=== PATIENT | male | born 1950 | race Caucasian/White ===

== ENCOUNTER 2017-07-24 18:56 | Emergency (ER) | payer OTHER ==
[~2017-07-24] VITALS: Ht 175.3 cm; Wt 109.0 kg
[2017-07-24 19:01] VITALS: TEMP 36.7; Ht 175.3 cm; Wt 109.0 kg
[2017-07-24] MEDS ORDERED: ACETAMINOPHEN 500 MG TAB PO STA (19:18)
--- NOTE | 2017-07-24 19:54 | EMERGENCY ROOM VISIT NOTE ---
ED Visit Note First contact with patient: 19:05 CHIEF COMPLAINT: Fall, head injury HISTORY OF PRESENTING ILLNESS: This is a 66-year-old male who presents to the emergency department with complaint of head injury from a fall at approximately 4:45 PM today. Patient states that he was walking down a ramp and lost his footing, tripping over a curb. He states that he fell forward onto both hands and his left knee then to his left side hitting the left lateral side of his head. He denies loss of consciousness. He takes a baby aspirin daily, he denies any other blood thinners. He states since hitting his head that he has had a constant dull headache rated 3/10. He has associated symptoms of nausea, dizziness, and states "I feel fuzzy and just kind of off." He denies any vomiting, blurry or double vision, confusion or memory problems. He denies any neck pain. He denies any back pain, chest pain, shortness of breath, syncope, abdominal pain, blood in his stool or urine, numbness or weakness of the extremities. He has small abrasions to both hands and to the anterior left knee. He denies any pain with range of motion of the left knee or walking on the left leg, denies any pain with range of motion of the bilateral wrists, elbows, or shoulders. Denies any ankle or hip pain. REVIEW OF SYSTEMS: A complete 10 point review of systems was reviewed with the patient with pertinent positives and negatives as per history of present illness. All else were negative. PAST MEDICAL HISTORY: Hypertension SOCIAL HISTORY: Lives at home. He denies tobacco use, alcohol or recreational drug use. ALLERGIES: Reviewed in chart. PHYSICAL EXAM: CONSTITUTIONAL: Pleasant and cooperative. No acute distress. Well appearing and well nourished. Interacts appropriately with provider. HEAD: Normocephalic, Atraumatic. No Auguste's Sign or Raccoon's Eyes. No depressed skull fractures palpable. EYES: PERRL with EOMI bilaterally. Without subconjunctival hemorrhage. Palpebral conjunctiva pink and moist with no injection. EARS: No deformities of external structures noted on gross examination bilaterally. No hemotympanum present. No tympanic perforation noted. NOSE: Midline and without cyanosis. No epistaxis or clear watery discharge noted. Septum midline without deviation. No septal hematoma noted. No overlying ecchymosis noted. MOUTH/OROPHARYNX: Without perioral cyanosis. Tongue midline with equal elevation of palate bilaterally. No blood noted in the oropharynx. No tonsillar hypertrophy, erythema, or exudates noted. No dental fractures noted. NECK: Supple, FROM assessed. No nuchal rigidity. No tenderness to palpation over the cervical spinous processes. Mild left-sided cervical paraspinal muscle tenderness noted. RESPIRATORY: Clear to auscultation bilaterally with no wheezing, crackles, rhonchi or stridor. Equal expansion bilaterally. CARDIOVASCULAR: Regular rate and rhythm with no murmurs, rubs or gallops. Normal peripheral perfusion. No edema. GASTROINTESTINAL: Soft, nontender, nondistended. No palpable masses or HSM. Bowel sounds present in all quadrants. MUSCULOSKELETAL: Full range of motion of all joints without discomfort. No gross deformities noted of the extremities. +2 radial and dorsalis pedis pulses palpated throughout. FROM with no tremors, fasciculations, or clonus noted on PROM throughout. +5/5 strength noted in UE/LE bilaterally. BACK: No midline tenderness or paraspinous tenderness to palpation of the thoracic or lumbar spine. No ecchymosis or abrasions noted. INTEGUMENTARY: Abrasions to bilateral palms of hands, abrasion to left anterior knee. No rash or other significant dermatologic conditions noted. NEUROLOGIC: Alert and oriented X 4 with normal affect. Cranial nerves II-XII grossly intact. No focal neurologic deficits noted. Sensory intact to light touch throughout. Patient able to perform rapid alternating movements appropriately. Negative Romberg and Pronator Drift. ED COURSE AND MEDICAL DECISION MAKING: CC: Patient presenting with complaint of fall, head injury DIFFERENTIAL DIAGNOSIS: Includes, but not limited to concussion, skull fracture , intracranial hemorrhage, hypertensive urgency/emergency, aortic dissection, among others. INTERPRETATION OF LABS: No leukocytosis, no anemia, no significant electrolyte abnormalities, normal renal function. IMAGING: CT SCAN OF THE BRAIN WITHOUT IV CONTRAST CLINICAL HISTORY: Fall. Head injury. COMPARISON STUDY: No priors. TECHNIQUE: Unenhanced axial CT scan of the brain is performed from the vertex to the skull base. A dose lowering technique was utilized adhering to the principles of ALARA. FINDINGS: Brain parenchyma: There are age-related involutional changes noting minimal periventricular microangiopathic change. There is no hemorrhage, mass effect, or evidence of acute territorial ischemia by CT criteria. Isaac-white matter is preserved. No extra-axial fluid collection is seen. Ventricles, sulci, cisterns: Prominent secondary to involutional change. Intracranial vasculature: There is atherosclerotic calcification of the cavernous carotid arteries. Calvarium: The skeletal structures are osteopenic. There is no depressed calvarial fracture. Sinuses and mastoids: The visualized paranasal sinuses are clear. The mastoid air cells are well pneumatized. Orbits: The bony orbits are grossly intact. IMPRESSION: No acute intracranial abnormality. ----- CT SCAN OF THE CERVICAL SPINE CLINICAL HISTORY: Fall. COMPARISON STUDY: No priors. TECHNIQUE: CT scan of the cervical spine is performed from the skull base to the upper thoracic spine. Images are reviewed in the axial, sagittal, and coronal planes. IV contrast was not administered for this examination. A dose lowering technique was utilized adhering to the principles of ALARA. CT DOSE: 1205.16 mGy.cm FINDINGS: Skeletal structures: The skeletal structures are osteopenia. There is no evidence of fracture or subluxation involving the cervical spine. Vertebral body height is maintained. Minimal anterolisthesis is seen at C4-C5. Alignment is otherwise preserved. There is straightening of the cervical lordosis with mild reversal centered at C4-C5. Anterior osteophytes are seen in the lower cervical region. The odontoid process and lateral masses are intact. The atlantoaxial articulation is preserved noting advanced productive degenerative change. The spinous processes appear intact. There is moderate multilevel cervical spondylosis. Uncovertebral and facet arthropathy contribute to neural foraminal stenosis at several levels. Intervertebral discs: There is moderate disc space narrowing seen at C5-C6 and C6-C7 with associated endplate sclerosis. Mild narrowing is seen at C4-C5. Central canal: Posterior discussed by complex is at C2-C3, C3-C4, C5-C6, and C6-C7 likely contribute to multilevel acquired compromise of the central canal. Soft tissues: The prevertebral and paraspinous soft tissues are within normal limits. A subcentimeter low-attenuation nodule is noted in the left thyroid lobe. Calvarium: The visualized calvarium at the skull base appears intact. Brain parenchyma: Partially visualized brain parenchyma the skull base is within normal limits. Sinuses and mastoids: The visualized paranasal sinuses are clear. The mastoid air cells are well pneumatized. Lung apices: Apical lung parenchyma is clear as visualized. Mediastinal widening is questioned on the final rail cutter tomogram. IMPRESSION: 1. There is no evidence of fracture or subluxation involving the cervical spine. 2. Osteopenia and multilevel spondylosis as above. 3. Mediastinal widening is questioned on the final rail cutter tomogram. This may be on a technical/projectional basis. Correlation with PA and lateral chest radiographs is recommended. ----- TWO VIEW CHEST CLINICAL HISTORY: Mediastinal widening questioned on cervical spine CT. FINDINGS: PA and lateral chest radiographs are correlated with CT of the cervical spine dated 07/24/2017. The heart is top normal for projection. Mild apparent widening of the mediastinum persists. There is atherosclerotic calcification of the thoracic aorta. The lungs and pleural spaces are clear. There is no pneumothorax. The bony thorax appears intact. IMPRESSION: 1. There is no acute cardiopulmonary abnormality. 2. Mild apparent widening of the mediastinum persists. This is of indeterminant significance, and although this may be artifactual correlation with a contrast-enhanced CT scan of the chest is recommended for further assessment. EKG: Normal sinus rhythm with a rate of 90 bpm, right bundle branch block by my interpretation. No previous EKGs available for comparison. Patient does report a history of a right bundle branch block MEDICATION RECONCILIATION: I attest that I have personally reviewed the patient 's current medication list. INITIAL VITAL SIGNS REVIEW: I reviewed the patient's initial vital signs and interpret them as follows: T: Afebrile; BP: Hypertensive; HR: Tachycardic; RR : Within normal limit; Pulse Ox: Within normal limits on room air. Blood pressure screening: The patient was found to have an elevated blood pressure and was referred to their primary doctor for recheck and further treatment. SUMMARY: Patient was evaluated at bedside, history and physical exam performed. Patient is alert and oriented, in no acute distress, resting calmly on the stretcher. Neurologic exam is intact with no focal deficits. He does complain of a headache and some left-sided neck pain. Patient has mild abrasions to the bilateral hands and left knee. Full range of motion of the knee, hands, and wrists without any pain or weakness. Patient is noted to be markedly hypertensive, states he takes clonidine twice a day, but states he only took half of his usual dose this morning. The patient states it is not unusual for him to have blood pressures in the 180s -200s/100s-120s. Orders were placed at bedside for EKG, Tylenol for headache, CT head and cervical spine to evaluate for trauma. Patient discussed with Dr. Owusu, who agrees with my assessment and plan. Imaging reviewed as above, concern for mediastinal widening on chest x-ray and cervical spine CT. The patient continues to deny any chest pain, shortness of breath, back pain, and his neurovascular exam remains intact on reassessment. Given this finding and the patient's history for significant hypertension, I feel it is the patient's best interest to fully evaluate for the possibility of dissection. I discussed this with the patient, he verbalized understanding and was in agreement. Labs were ordered. CTA dissection study of the chest was ordered. The patient has been persistently hypertensive, though he does note he is due for his clonidine. The patient took his own home dose of PO clonidine, 0.1 mg, at 11 PM, with my direct supervision. Will continue to closely monitor his blood pressure. Patient reassessed multiple times throughout ED stay, he has remained well- appearing and stable, his tachycardia is downtrending. Patient was signed out to Karthikeyan Panchal PA-C, at change of shift, awaiting results of the CTA. Patient was stable at time of sign-out. Current/Historical Medications Scheduled Aspirin (Aspirin Ec), 81 MG PO DAILY Clonidine Hcl (Catapres), 0.1 MG PO BID Diazepam (Valium), 0.5 TAB PO PRN UD Eszopiclone (Lunesta), 3 MG PO HS Rabeprazole Sodium (Aciphex), 40 MG PO DAILY Scheduled PRN Acetaminophen (Tylenol), 750-1,000 MG PO BID PRN for Pain Allergies Coded Allergies: Sulfa Antibiotics (Verified Allergy, Severe, FATIGUE, 07/24/17) Uncoded Allergies: ADULT STRENGTH ASPIRIN (Allergy, Intermediate, HEAD, HAND HIVES, 07/24/17) Vital Signs Date Time Temp Pulse Resp B/P (MAP) Pulse Ox O2 Delivery O2 Flow Rate FiO2 07/24/17 23:12 80 18 200/125 97 Room Air 07/24/17 22:57 81 96 Room Air 07/24/17 22:44 206/112 07/24/17 22:42 209/112 07/24/17 21:27 83 95 07/24/17 21:22 83 22 180/108 95 07/24/17 19:26 97 20 95 Room Air 07/24/17 19:21 186/109 07/24/17 19:01 36.7 103 20 207/119 95 Room Air Laboratory Results 07/24/17 22:50 Red Blood Count 5.79, Mean Corpuscular Volume 78.1, Mean Corpuscular Hemoglobin 26.4, Mean Corpuscular Hemoglobin Concent 33.8, Mean Platelet Volume 10.1, Neutrophils (%) (Auto) 61.9, Lymphocytes (%) (Auto) 26.0, Monocytes (%) (Auto) 10.6, Eosinophils (%) (Auto) 1.0, Basophils (%) (Auto) 0.3, Neutrophils # (Auto ) 5.89, Lymphocytes # (Auto) 2.48, Monocytes # (Auto) 1.01, Eosinophils # (Auto ) 0.10, Basophils # (Auto) 0.03 Test 07/24/17 22:50 07/24/17 22:58 White Blood Count 9.53 K/uL (4.8-10.8) Red Blood Count 5.79 M/uL (4.7-6.1) Hemoglobin 15.3 g/dL (14.0-18.0) Hematocrit 45.2 % (42-52) Mean Corpuscular Volume 78.1 fL (80-100) Mean Corpuscular Hemoglobin 26.4 pg (25-34) Mean Corpuscular Hemoglobin Concent 33.8 g/dl (32-36) Platelet Count 248 K/uL (130-400) Mean Platelet Volume 10.1 fL (7.4-10.4) Neutrophils (%) (Auto) 61.9 % Lymphocytes (%) (Auto) 26.0 % Monocytes (%) (Auto) 10.6 % Eosinophils (%) (Auto) 1.0 % Basophils (%) (Auto) 0.3 % Neutrophils # (Auto) 5.89 K/uL (1.4-6.5) Lymphocytes # (Auto) 2.48 K/uL (1.2-3.4) Monocytes # (Auto) 1.01 K/uL (0.11-0.59) Eosinophils # (Auto) 0.10 K/uL (0-0.5) Basophils # (Auto) 0.03 K/uL (0-0.2) RDW Standard Deviation 47.6 fL (36.4-46.3) RDW Coefficient of Variation 17.0 % (11.5-14.5) Immature Granulocyte % (Auto) 0.2 % Immature Granulocyte # (Auto) 0.02 K/uL (0.00-0.02) Bedside Hemoglobin 15.6 g/dl (14.0-18.0) Bedside Hematocrit 46 % (42-52) Bedside Sodium 139 mEq/L (135-144) Bedside Potassium 3.6 mEq/L (3.3-5.0) Bedside Chloride 102 mEq/L (101-112) Bedside Total CO2 24 mEq/l (24-31) Anion Gap 17.0 mmol/L (16-25) Bedside Blood Urea Nitrogen 16 mg/dl (7-18) Bedside Creatinine 1.0 mg/dl (0.6-1.3) Bedside Glucose (other) 98 mg/dl (70-99) Bedside Ionized Calcium (Nirali) 1.20 mmol/l (1.12-1.32) Medications Administered Medications (Trade) Dose Ordered Sig/Kareen Route Start Time Stop Time Status Last Admin Dose Admin Acetaminophen (Tylenol Tab) 1,000 mg NOW STAT PO 07/24/17 19:18 07/24/17 19:20 DC 07/24/17 19:28 1,000 MG Departure Information Impression Primary Impression: Fall Referrals No Doctor, Assigned (PCP) Patient Instructions [facility] Problem Qualifiers Primary Impression: Fall Encounter type: initial encounter Qualified Codes: W19.XXXA - Unspecified fall, initial encounter
[2017-07-24] MEDS ORDERED: ESZO1TAB16 PO (19:57)
[2017-07-24] MEDS ORDERED: ACET-1256 PO (19:57)
[2017-07-24] MEDS ORDERED: DIAZ-165 PO (19:57)
[2017-07-24] MEDS ORDERED: RABE20TA5 PO (19:57)
[2017-07-24] MEDS ORDERED: ASPI81TA28 PO (19:57)
[2017-07-24] MEDS ORDERED: CTP/1 PO (19:57)
--- NOTE | 2017-07-24 20:08 | DIAGNOSTIC IMAGING REPORT ---
CT SCAN OF THE BRAIN WITHOUT IV CONTRAST CLINICAL HISTORY: Fall. Head injury. COMPARISON STUDY: No priors. TECHNIQUE: Unenhanced axial CT scan of the brain is performed from the vertex to the skull base. A dose lowering technique was utilized adhering to the principles of ALARA. FINDINGS: Brain parenchyma: There are age-related involutional changes noting minimal periventricular microangiopathic change. There is no hemorrhage, mass effect, or evidence of acute territorial ischemia by CT criteria. Isaac-white matter is preserved. No extra-axial fluid collection is seen. Ventricles, sulci, cisterns: Prominent secondary to involutional change. Intracranial vasculature: There is atherosclerotic calcification of the cavernous carotid arteries. Calvarium: The skeletal structures are osteopenic. There is no depressed calvarial fracture. Sinuses and mastoids: The visualized paranasal sinuses are clear. The mastoid air cells are well pneumatized. Orbits: The bony orbits are grossly intact. IMPRESSION: No acute intracranial abnormality. Electronically signed by: Aleksandr Velasquez M.D. 07/24/2017 8:07 PM Dictated Date/Time: 07/24/2017 8:05 PM
--- NOTE | 2017-07-24 20:12 | DIAGNOSTIC IMAGING REPORT ---
CT SCAN OF THE CERVICAL SPINE CLINICAL HISTORY: Fall. COMPARISON STUDY: No priors. TECHNIQUE: CT scan of the cervical spine is performed from the skull base to the upper thoracic spine. Images are reviewed in the axial, sagittal, and coronal planes. IV contrast was not administered for this examination. A dose lowering technique was utilized adhering to the principles of ALARA. CT DOSE: 1205.16 mGy.cm FINDINGS: Skeletal structures: The skeletal structures are osteopenia. There is no evidence of fracture or subluxation involving the cervical spine. Vertebral body height is maintained. Minimal anterolisthesis is seen at C4-C5. Alignment is otherwise preserved. There is straightening of the cervical lordosis with mild reversal centered at C4-C5. Anterior osteophytes are seen in the lower cervical region. The odontoid process and lateral masses are intact. The atlantoaxial articulation is preserved noting advanced productive degenerative change. The spinous processes appear intact. There is moderate multilevel cervical spondylosis. Uncovertebral and facet arthropathy contribute to neural foraminal stenosis at several levels. Intervertebral discs: There is moderate disc space narrowing seen at C5-C6 and C6-C7 with associated endplate sclerosis. Mild narrowing is seen at C4-C5. Central canal: Posterior discussed by complex is at C2-C3, C3-C4, C5-C6, and C6-C7 likely contribute to multilevel acquired compromise of the central canal. Soft tissues: The prevertebral and paraspinous soft tissues are within normal limits. A subcentimeter low-attenuation nodule is noted in the left thyroid lobe. Calvarium: The visualized calvarium at the skull base appears intact. Brain parenchyma: Partially visualized brain parenchyma the skull base is within normal limits. Sinuses and mastoids: The visualized paranasal sinuses are clear. The mastoid air cells are well pneumatized. Lung apices: Apical lung parenchyma is clear as visualized. Mediastinal widening is questioned on the tool trouble shooter tomogram. IMPRESSION: 1. There is no evidence of fracture or subluxation involving the cervical spine. 2. Osteopenia and multilevel spondylosis as above. 3. Mediastinal widening is questioned on the tool trouble shooter tomogram. This may be on a technical/projectional basis. Correlation with PA and lateral chest radiographs is recommended. Electronically signed by: Aleksandr Velasquez M.D. 07/24/2017 8:11 PM Dictated Date/Time: 07/24/2017 8:07 PM
--- NOTE | 2017-07-24 21:55 | DIAGNOSTIC IMAGING REPORT ---
TWO VIEW CHEST CLINICAL HISTORY: Mediastinal widening questioned on cervical spine CT. FINDINGS: PA and lateral chest radiographs are correlated with CT of the cervical spine dated 07/24/2017. The heart is top normal for projection. Mild apparent widening of the mediastinum persists. There is atherosclerotic calcification of the thoracic aorta. The lungs and pleural spaces are clear. There is no pneumothorax. The bony thorax appears intact. IMPRESSION: 1. There is no acute cardiopulmonary abnormality. 2. Mild apparent widening of the mediastinum persists. This is of indeterminant significance, and although this may be artifactual correlation with a contrast-enhanced CT scan of the chest is recommended for further assessment. Electronically signed by: Aleksandr Velasquez M.D. 07/24/2017 9:54 PM Dictated Date/Time: 07/24/2017 9:52 PM
[2017-07-24] MEDS ORDERED: OPTIRAY 320 IV PRN (22:45)
[2017-07-24 23:11] LABS: BASO % 0.3 %; BASO ABS # 0.03 K/uL (0-0.2); HEMATOCRIT 45.2 % (42-52); HEMOGLOBIN 15.3 g/dL (14.0-18.0); IG# 0.02 K/uL (0.00-0.02); LYMPH ABS # 2.48 K/uL (1.2-3.4); MEAN CELL VOLUME 78.1 fL (80-100); MEAN CORPUSCULAR HEMOGLOBIN 26.4 pg (25-34); MEAN CORPUSCULAR HGB CONC 33.8 g/dl (32-36); MEAN PLATELET VOLUME 10.1 fL (7.4-10.4); MONO % 10.6 %; MONO ABS # 1.01 K/uL (0.11-0.59); NEUT % 61.9 %; NEUT ABS # 5.89 K/uL (1.4-6.5); PLATELET COUNT 248 K/uL (130-400); RED CELL DISTRIBUTION WIDTH SD 47.6 fL (36.4-46.3); WHITE BLOOD COUNT 9.53 K/uL (4.8-10.8)
[2017-07-24 23:14] LABS: ISTAT IONIZED CALCIUM 1.2 mmol/l (1.12-1.32); ISTAT POTASSIUM 3.6 mEq/L (3.3-5.0)
[2017-07-24 23:20] LABS: INR 0.9 (0.9-1.1); PTT PATIENT 28.7 SECONDS (21.0-31.0)
[2017-07-24 23:36] LABS: ALBUMIN 3.8 gm/dl (3.4-5.0); ALT/SGPT 24 U/L (12-78); BLOOD UREA NITROGEN 16 mg/dl (7-18); CALCIUM 8.8 mg/dl (8.5-10.1); CARBON DIOXIDE 25 mmol/L (21-32); CREATININE 1.07 mg/dl (0.60-1.40); GLUCOSE 92 mg/dl (70-99); POTASSIUM 3.5 mmol/L (3.5-5.1); SODIUM 136 mmol/L (136-145)
[2017-07-24 23:41] LABS: ALKALINE PHOSPHATASE 94 U/L (45-117); AST/SGOT 17 U/L (15-37); TOTAL PROTEIN 7.5 gm/dl (6.4-8.2)
[2017-07-25 00:02] VITALS: PULSE 81; O2SAT 97
--- NOTE | 2017-07-25 00:08 | EMERGENCY ROOM VISIT NOTE ---
ED Visit Note First contact with patient: 23:26 Patient care was assumed from SHEREEN Mercado, at the time of shift change. Please see her dictation for full history of present illness and emergency department course prior to my assumption of care. In short, the patient suffered a fall today, with subsequent left-sided head and neck injury. CT scans of the head and neck were performed, and there was concern for possible widened mediastinum on incidental reading of the CT of the neck. Because of this a CT scan of the chest was performed, and blood work was obtained. The patient's blood work does not reveal a significantly elevated white blood cell count, gross anemia, bandemia, or significant electrolyte imbalance. Troponin is negative. The patient's CT scan of the chest did return and was read by [facility] as showing no significant cardiovascular abnormalities or mediastinal mass to explain clinical presentation. Additionally there is no evidence of PE or other significant findings. I discussed options of care with the patient who appears well for discharge home. He does have an elevated blood pressure, however the sounds like it is chronic and he follows regularly with his PCP for this. He does have clonidine that he takes up to 3 times daily for control, and I recommended that he continue this. The patient was otherwise invited back to the ER with any new, worsening, or concerning symptoms. Current/Historical Medications Scheduled Aspirin (Aspirin Ec), 81 MG PO DAILY Clonidine Hcl (Catapres), 0.1 MG PO BID Diazepam (Valium), 0.5 TAB PO PRN UD Eszopiclone (Lunesta), 3 MG PO HS Rabeprazole Sodium (Aciphex), 40 MG PO DAILY Scheduled PRN Acetaminophen (Tylenol), 750-1,000 MG PO BID PRN for Pain Allergies Coded Allergies: Sulfa Antibiotics (Verified Allergy, Severe, FATIGUE, 07/24/17) Uncoded Allergies: ADULT STRENGTH ASPIRIN (Allergy, Intermediate, HEAD, HAND HIVES, 07/24/17) Vital Signs Date Time Temp Pulse Resp B/P (MAP) Pulse Ox O2 Delivery O2 Flow Rate FiO2 07/24/17 23:12 80 18 200/125 97 Room Air 07/24/17 22:57 81 96 Room Air 07/24/17 22:44 206/112 07/24/17 22:42 209/112 07/24/17 21:27 83 95 07/24/17 21:22 83 22 180/108 95 07/24/17 19:26 97 20 95 Room Air 07/24/17 19:21 186/109 07/24/17 19:01 36.7 103 20 207/119 95 Room Air Laboratory Results 07/24/17 22:50 Red Blood Count 5.79, Mean Corpuscular Volume 78.1, Mean Corpuscular Hemoglobin 26.4, Mean Corpuscular Hemoglobin Concent 33.8, Mean Platelet Volume 10.1, Neutrophils (%) (Auto) 61.9, Lymphocytes (%) (Auto) 26.0, Monocytes (%) (Auto) 10.6, Eosinophils (%) (Auto) 1.0, Basophils (%) (Auto) 0.3, Neutrophils # (Auto ) 5.89, Lymphocytes # (Auto) 2.48, Monocytes # (Auto) 1.01, Eosinophils # (Auto ) 0.10, Basophils # (Auto) 0.03 07/24/17 22:50 Test 07/24/17 22:50 07/24/17 22:58 White Blood Count 9.53 K/uL (4.8-10.8) Red Blood Count 5.79 M/uL (4.7-6.1) Hemoglobin 15.3 g/dL (14.0-18.0) Hematocrit 45.2 % (42-52) Mean Corpuscular Volume 78.1 fL (80-100) Mean Corpuscular Hemoglobin 26.4 pg (25-34) Mean Corpuscular Hemoglobin Concent 33.8 g/dl (32-36) Platelet Count 248 K/uL (130-400) Mean Platelet Volume 10.1 fL (7.4-10.4) Neutrophils (%) (Auto) 61.9 % Lymphocytes (%) (Auto) 26.0 % Monocytes (%) (Auto) 10.6 % Eosinophils (%) (Auto) 1.0 % Basophils (%) (Auto) 0.3 % Neutrophils # (Auto) 5.89 K/uL (1.4-6.5) Lymphocytes # (Auto) 2.48 K/uL (1.2-3.4) Monocytes # (Auto) 1.01 K/uL (0.11-0.59) Eosinophils # (Auto) 0.10 K/uL (0-0.5) Basophils # (Auto) 0.03 K/uL (0-0.2) RDW Standard Deviation 47.6 fL (36.4-46.3) RDW Coefficient of Variation 17.0 % (11.5-14.5) Immature Granulocyte % (Auto) 0.2 % Immature Granulocyte # (Auto) 0.02 K/uL (0.00-0.02) Prothrombin Time 9.8 SECONDS (9.0-12.0) Prothromb Time International Ratio 0.9 (0.9-1.1) Activated Partial Thromboplast Time 28.7 SECONDS (21.0-31.0) Partial Thromboplastin Ratio 1.1 Est Creatinine Clear Calc Drug Dose 83.8 ml/min Estimated GFR () 84.0 Estimated GFR (Non- 72.5 BUN/Creatinine Ratio 14.6 (10-20) Calcium Level 8.8 mg/dl (8.5-10.1) Total Bilirubin 0.5 mg/dl (0.2-1) Aspartate Amino Transf (AST/SGOT) 17 U/L (15-37) Alanine Aminotransferase (ALT/SGPT) 24 U/L (12-78) Alkaline Phosphatase 94 U/L (45-117) Troponin I < 0.015 ng/ml (0-0.045) Total Protein 7.5 gm/dl (6.4-8.2) Albumin 3.8 gm/dl (3.4-5.0) Globulin 3.7 gm/dl (2.5-4.0) Albumin/Globulin Ratio 1.0 (0.9-2) Bedside Hemoglobin 15.6 g/dl (14.0-18.0) Bedside Hematocrit 46 % (42-52) Bedside Sodium 139 mEq/L (135-144) Bedside Potassium 3.6 mEq/L (3.3-5.0) Bedside Chloride 102 mEq/L (101-112) Bedside Total CO2 24 mEq/l (24-31) Anion Gap 17.0 mmol/L (16-25) Bedside Blood Urea Nitrogen 16 mg/dl (7-18) Bedside Creatinine 1.0 mg/dl (0.6-1.3) Bedside Glucose (other) 98 mg/dl (70-99) Bedside Ionized Calcium (Nirali) 1.20 mmol/l (1.12-1.32) Medications Administered Medications (Trade) Dose Ordered Sig/Kareen Route Start Time Stop Time Status Last Admin Dose Admin Acetaminophen (Tylenol Tab) 1,000 mg NOW STAT PO 07/24/17 19:18 07/24/17 19:20 DC 07/24/17 19:28 1,000 MG Departure Information Impression Primary Impression: Fall Additional Impression: Elevated blood pressure reading Dispostion Home / Self-Care Condition GOOD Forms HOME CARE DOCUMENTATION FORM, IMPORTANT VISIT INFORMATION Patient Instructions My [facility] Additional Instructions You were seen and evaluated today on an emergency basis only. This is not a substitute for, or an effort to provide, complete comprehensive medical care. It is not possible to recognize and treat all injuries or illnesses in a single emergency department visit. For this reason it is recommended that you followup with your primary care physician with any ongoing or persistent symptoms. Continue your blood pressure medications at home as prescribed. For baseline pain relief you may alternate ibuprofen and acetaminophen every 4 hours for pain control. Take 600 mg ibuprofen (Advil) and then 4 hours later take 1000 mg acetaminophen (Tylenol). Do not take more than 3000 mg acetaminophen in a single day. You are welcome to return to the emergency department anytime with new, worsening, or concerning symptoms. Problem Qualifiers
[2017-07-25 00:16] VITALS: BP 165/98
--- NOTE | 2017-07-25 08:38 | DIAGNOSTIC IMAGING REPORT ---
CHEST COMBO ANGIO DISSECTION CLINICAL HISTORY: Widened mediastinum on prior imaging studies. Fall. COMPARISON STUDY: Chest radiograph July 24, 2017. TECHNIQUE: Unenhanced and arterial phase imaging of the chest was performed. Injection of 118 cc of Optiray 320 IV was uneventful. Sagittal and coronal reconstructions were viewed as well as maximal intensity projections on an independent 3-D workstation. FINDINGS: Mediastinal widening on prior exams is due to a tortuous ascending aorta and mediastinal fat. There is no thoracic aortic dissection. Caliber of the ascending aorta is at the upper limits of normal. Size of the heart is normal. There is no pericardial effusion. No pulmonary emboli are identified. There is no pneumothorax or pleural effusion. A few small lung nodules are likely benign. No acute rib or thoracic spine fracture is identified. A few small hypervascular foci within the spleen are indeterminate but statistically benign. IMPRESSION: 1. No thoracic aortic dissection. Mediastinal widening on prior exams is due to mediastinal fat and a slightly tortuous ascending aorta which is at the upper limits of normal for caliber. 2. No acute intrathoracic findings. Electronically signed by: Miguelito Salcedo M.D. 07/25/2017 7:00 AM Dictated Date/Time: 07/25/2017 6:44 AM
== END 2017-07-25 00:24 | disposition home or self-care (01) ==
LOC: C.EDB 18:58
DX: S09.90XA Unspecified injury of head, initial encounter (principal); W19.XXXA Unspecified fall, initial encounter; I10 Essential (primary) hypertension; Z79.82 Long term (current) use of aspirin; Z88.2 Allergy status to sulfonamides